=== PATIENT | female | born 1995 | race Caucasian/White ===

== ENCOUNTER 2022-07-05 09:19 | Inpatient (IN) | payer MEDICAID ==
[~2022-07-05] VITALS: Ht 157.5 cm; Wt 88.5 kg
[2022-07-05] MEDS ORDERED: LR 1,000 ML IV ONE (12:45)
[2022-07-05] MEDS ORDERED: TERBUTALINE SULFATE 1 MG/ML VIAL SUBCUT ONE (12:45)
[2022-07-05] MEDS ORDERED: LR 1,000 ML IV SCH (12:45)
[2022-07-05] MEDS: OXYTOCIN/0.9 % SODIUM CHLORIDE 1,000 ML IV SCH (13:06)
[2022-07-05 13:23] LABS: BASOPHILS % (AUTO) 0.4 % (0.0-2.0); EOSINOPHILS # (AUTO) 0.1 K/uL (0.0-0.4); EOSINOPHILS % (AUTO) 1.3 % (0.0-4.0); HEMATOCRIT 36.6 % (36-48); LYMPHOCYTES # (AUTO) 1.4 K/uL (1.0-5.5); MEAN CORPUSCULAR HEMOGLOBIN 30 pg (27-31); MEAN CORPUSCULAR HGB CONC 35 % (32-36); MEAN CORPUSCULAR VOLUME 86 fL (79.0-98.0); MONOCYTES # (AUTO) 0.3 K/uL (0.0-1.0); MONOCYTES % (AUTO) 4.7 % (1.7-9.3); NEUTROPHILS # (AUTO) 4.1 K/uL (1.8-7.7); NEUTROPHILS % (AUTO) 69.6 % (40.0-70.0); PLATELET COUNT (AUTO) 197 K/uL (130-430); RED BLOOD CELL COUNT(AUTO) 4.27 MIL/uL (4.2-6.2); RED CELL DISTRIBUTION WIDTH 14.7 % (9.0-15.0); WHITE BLOOD COUNT (AUTO) 5.9 K/uL (4.8-10.8)
[2022-07-05 14:33] VITALS: BP_SYST 114
[2022-07-05] MEDS ORDERED: FLU VACC QS2022-23(6MOS UP)/PF 0.5 ML/SYR SYRINGE I.M. PRN (14:45)
[2022-07-05] MEDS: NALBUPHINE HCL 10 MG/ML AMP IVP PRN (15:12)
[2022-07-05] MEDS ORDERED: AMPICILLIN SODIUM 2 GM in NS 100 ML IV ONE (23:45)
[2022-07-06] MEDS: NALBUPHINE HCL 10 MG/ML AMP IVP PRN ×2 (00:04→19:42)
[2022-07-06] MEDS ORDERED: fentaNYL CITRATE/PF 100 MCG/2 ML AMP ONE ×2 (01:42→20:27)
[2022-07-06] MEDS ORDERED: ROPIVACAINE HCL/PF 0.2% 200 ML ONE ×2 (01:42→16:49)
[2022-07-06] MEDS ORDERED: ONDANSETRON HCL 4 MG/2 ML VIAL IVP PRN (01:45)
[2022-07-06] MEDS ORDERED: NALOXONE HCL 0.4 MG/ML AMP (NARCAN) IVP PRN (01:45)
[2022-07-06] MEDS ORDERED: DIPHENHYDRAMINE INJ 50 MG/ML VIAL IVP PRN (01:45)
[2022-07-06] MEDS ORDERED: FENT2mCg/mL-ROPIVA0.2%/NS EPID 200 ML EP SCH (01:45)
[2022-07-06] MEDS ORDERED: AMPICILLIN SODIUM 1 GM in NS 50 ML IV SCH (03:45)
[2022-07-06] MEDS: OXYTOCIN/0.9 % SODIUM CHLORIDE 1,000 ML IV SCH (05:02)
[2022-07-06] MEDS ORDERED: ROPIVACAINE HCL/PF 0.2% 200 ML EP SCH (16:40)
[2022-07-06] MEDS ORDERED: LIDOCAINE PF 1% 30ML(POUR BTL) INJ ONE (20:38)
[2022-07-06] MEDS ORDERED: NALOXONE HCL 0.4 MG/ML AMP (NARCAN) ONE (20:38)
[2022-07-06] MEDS ORDERED: LIGHT MINERAL OIL 10 ML VIAL MC ONE (20:38)
[2022-07-06] MEDS ORDERED: ACETAMINOPHEN 325 MG TABLET ONE (21:29)
[2022-07-06] MEDS ORDERED: ACETAMINOPHEN 325 MG TABLET PO PRN (21:30)
[2022-07-06] MEDS ORDERED: ceFAZolin SODIUM 2 GM in D5W 100 ML IV SCH (23:15)
[2022-07-07] MEDS ORDERED: HYDROcodone/ACETAMIN 5-325 MG TAB (NORCO/ VICODIN) PO PRN ×2
[2022-07-07] MEDS ORDERED: OXYCODONE/ACETAMINOPHEN 5-325 TABLET PO PRN ×4
[2022-07-07] MEDS: OXYTOCIN/0.9 % SODIUM CHLORIDE 1,000 ML IV SCH (00:25)
[2022-07-07] MEDS ORDERED: DERMOPLAST SPRAY TP PRN (00:30)
[2022-07-07] MEDS ORDERED: WITCH HAZEL LEAF 1 MED.PAD MED.PAD TP PRN (00:30)
[2022-07-07] MEDS ORDERED: HYDROCORTISONE 0.5% CREAM 28.4 GM CREAM.GM. TP PRN (00:30)
[2022-07-07] MEDS ORDERED: ANUSOL 1 EA SUPP.RECT (PREPARATION H) RC PRN (00:30)
[2022-07-07] MEDS: IBUPROFEN 600 MG TABLET PO SCH ×5 (01:02→23:43)
[2022-07-07] MEDS ORDERED: IBUPROFEN 600 MG TABLET ONE (01:04)
[2022-07-07 07:19] LABS: HEMATOCRIT 30.6 % (36-48); HEMOGLOBIN 10.2 g/dL (12.0-16.0)
[2022-07-07] MEDS: DOCUSATE SODIUM 100 MG CAPSULE PO SCH (10:47)
[2022-07-07] MEDS ORDERED: SENNOSIDES/DOCUSATE SODIUM 1 TAB TABLET(SENOKOT-S) PO SCH (21:00)
[2022-07-08] MEDS: IBUPROFEN 600 MG TABLET PO SCH (05:44)
[2022-07-08] MEDS: DOCUSATE SODIUM 100 MG CAPSULE PO SCH (09:55)
== END 2022-07-08 15:25 | disposition home or self-care (01) | DRG 560 ==
LOC: PREOBSVTOIN 12:23 → PREINTOOBSV 12:23 → SPU 12:36
PROVIDERS: ADMIT Obstetrics & Gynecology; ATTEND Obstetrics & Gynecology
PROC: 10E0XZZ Delivery of Products of Conception, External Approach (ICD-10-PCS; principal; 2022-07-06)
PROC: 0W8NXZZ Division of Female Perineum, External Approach (ICD-10-PCS; 2022-07-06)
PROC: 3E0R3BZ Introduction of Anesthetic Agent into Spinal Canal, Percutaneous Approach (ICD-10-PCS; 2022-07-06)
PROC: 00HU33Z Insertion of Infusion Device into Spinal Canal, Percutaneous Approach (ICD-10-PCS; 2022-07-06)
DX: O80 Encounter for full-term uncomplicated delivery (principal); Z37.0 Single live birth; Z3A.39 39 weeks gestation of pregnancy
CPT/HCPCS: 36415; 81002; 85018; 85025; 86592; 86886; 86900; 86901; 94760; J0290; J2001; J2300; J2310; J2590; J3010; J7060